=== PATIENT | female | born 1970 | race Caucasian/White ===

== ENCOUNTER 2019-07-18 11:21 | Outpatient (CLI) | payer BC, SELFPAY ==
--- NOTE | ~2019-07-18 | XR_ITS ---
EXAMINATION: XR chest 2V 07/18/2019 11:39 INDICATION: Cough. PROCEDURE: 2 view chest COMPARISON: Comparison to multiple prior studies sequentially, with oldest reviewed study dated 04/13. FINDINGS: The lungs are clear. The cardiomediastinal silhouette is within normal limits. There are no pleural effusions. There is no pneumothorax suspected. IMPRESSION: 1: NO ACUTE CARDIOPULMONARY DISEASE. Reviewed, dictated and finalized at location B. 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
== END 2019-07-18 11:22 | disposition home or self-care (01) ==
LOC: ANHIMG 11:28
PROVIDERS: PCP Internal Medicine; Visit Provider Physician Assistant
DX: R05 Cough (principal)
CPT/HCPCS: 71046

== ENCOUNTER 2019-07-30 17:14 | Emergency (ER) | payer BC, SELFPAY ==
--- NOTE | ~2019-07-30 | XR_ITS ---
EXAMINATION: XR chest 2V DATE: 07/30/2019 19:32 INDICATION: Cough and fever TECHNIQUE: AP and lateral views of the chest are obtained. COMPARISON: 07/18/2019 FINDINGS: The lungs are free of acute opacities. There is no pleural effusion or pneumothorax. The ca rdiomediastinal silhouette is normal. There is moderate thoracic spondylosis. There is partially imag ed anterior fusion hardware lower cervical spine. IMPRESSION: 1. No acute cardiopulmonary abnormality. Reviewed, dictated and finalized at location A.
--- NOTE | ~2019-07-30 | CT_ITS ---
EXAMINATION: CTA chest PE protocol DATE: 07/30/2019 20:26 INDICATION: Chest pain, shortness of breath and cough TECHNIQUE: Computed tomography angiography (CTA) of the chest was performed with 100 mL Omnipaque-350 intravenous contrast timed to evaluate the pulmonary arteries. Coronal maximum intensity projection 3D-reconstructions were created by the technologist. The dose-length product (DLP) was 1050.65 mGy-cm . Automated exposure control and iterative reconstruction technique were employed. COMPARISON: None. FINDINGS: The pulmonary arteries are well-opacified. No pulmonary embolism is identified. The lungs a re free of acute opacities. There is no pleural effusion or pneumothorax. The heart size is normal. T here is an increase in number of nonpathologically enlarged mediastinal lymph nodes. There is mild th oracic spondylosis. There are partially imaged changes of anterior fusion procedure in the lower cerv ical spine. IMPRESSION: 1. No pulmonary embolism or acute cardiopulmonary abnormality. Reviewed, dictated and finalized at location A.
[2019-07-30 17:48] VITALS: BP 145/125; PULSE 83; PULSE 87; RESP 18; TEMP 36.8; O2SAT 97
--- NOTE | 2019-07-30 18:01 | ED.URI ---
HPI - URI/Sore Throat General Chief Complaint: Shortness of Breath/Dyspnea Stated Complaint: short of breath, cough, fever Time Seen by Provider: 07/30/19 17:33 Source: patient and RN notes reviewed Mode of arrival: ambulatory Limitations: no limitations History of Present Illness HPI Narrative: Pt is a 48 y/o female who presents to the ED with c/o flu-like symptoms starting roughly 2 weeks ago. 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 She states she just talked to mother briefly but it was over 4 weeks ago . Pt notes that she developed a fever and cough roughly 2 weeks ago. She states that she was evaluated by her PCP, Dr. Francois, on 07/15 for her symptoms, but notes that she didn't receive a flu swab or other testing. Pt states that she was discharged home with Deysi Billy. She states that her temperature has been persistently elevated ever since, and notes that her temperature was 100.4 degrees last night. Pt states that she has had SOB, a productive cough, bilateral chest pain, sore throat, and a headache for the past week. She notes that she has been producing a mix of phlegm and blood with her cough. Pt denies having any epistaxis, sinus congestion, or post-nasal drip. She states that she hasn't had any recent travel. elicited complaint: other (Flu-like symptoms) Onset (ago): week(s) (2) Description of mucous: bloody Associated symptoms: fever, headache, sore throat, cough (productive), chest pain (bilateral chest pain) and shortness of breath Related Data Allergies Allergy/AdvReac Type Severity Reaction Status Date / Time clindamycin Allergy Mild Hives Verified 07/16/19 16:36 morphine Allergy Mild Headache Verified 07/16/19 16:36 Review of Systems Review of Systems: All systems reviewed & are unremarkable except as noted in HPI and below Constitutional: Constitutional: Reports fever(s) and Reports headache(s) ENT: Denies epistaxis, Denies nasal congestion, Denies post nasal drip and Reports sore throat Cardiovascular: Cardiovascular: Reports chest pain (bilateral) Respiratory: Respiratory: Reports cough (productive) and Reports dyspnea PMFSH Past Medical History Medical History Anxiety Depression Endometriosis GERD (gastroesophageal reflux disease) Gestational diabetes Surgical History Surgical History History of hysterectomy Hx of appendectomy Hx of cervical spine surgery Hx of section Hx of left knee surgery Hx of shoulder surgery bilateral shoulders Social History Social History Smoking status: Former smoker Second hand tobacco smoke exposure: No Alcohol intake: never Gender identity (if verbalized by the patient): Female Exam Narrative: Exam Narrative: GENERAL: Well-appearing, well-nourished, and in no acute distress. HEAD: Normocephalic, atraumatic EYES: PERRLA and EOMI, conjunctiva clear without discharge EARS: TM's clear bilaterally without erythema or dullness THROAT:Mucous membranes moist, Oropharynx normal without erythema, exudate, peritonsillar swelling or fluctuance NECK: Supple, without lymphadenopathy or mass RESPIRATORY: No respiratory distress, Airway patent, Respirations non-labored, Clear to auscultation without rales, rhonchi or wheeze HEART: Regular rate and rhythm. No murmur heard. Normal peripheral pulses. ABDOMEN: Soft, nontender, nondistended, normal active bowel sounds. No masses. No rebound or guarding, No organomegaly. EXTREMITIES: No edema, normal strength with full range of motion. SKIN: Warm, dry, normal color without rash NEURO: Alert and oriented x3. CN 2-12 grossly intact. No focal deficits. PSYCH: Normal mood and affect. Course Course Emergency Course: Patient presented with c/o URI symptoms with laryngitis for 2 week
--- NOTE | 2019-07-30 18:08 | ECG_ITS ---
Measurements Intervals [place] Rate: 87 P: 59 [place]: 162 QRS: -51 QRSD: 110 T: 61 QT: 362 QTc: 436 Interpretive Statements SINUS RHYTHM LEFT ANTERIOR FASCICULAR BLOCK BASELINE WANDER- V2 ABNORMAL ECG Electronically Signed On 07-31-2019 7:36:30 CDT by Kale Osorio D.O.
[2019-07-30 18:20] LABS: Basophils Absolute Auto 0.1 K/mm3 (0.0-0.1); Basophils Percent Auto 0.7 % (0.2-1.2); Eosinophils Absolute Auto 0.4 K/mm3 (0-0.3); Hematocrit 39.7 % (37.0-47.0); Hemoglobin 12.8 g/dL (12.0-15.0); Immature Granulocyte Absolute 0.07 K/mm3 (0.00-0.031); Immature Granulocyte Percent A 0.5 % (0-0.5); Mean Corpuscular HGB Conc 32.2 g/dl (32-36); Mean Corpuscular Hemoglobin 28.6 pg (26-34); Mean Corpuscular Volume 88.8 fl (80-100); Mean Platelet Volume 9.5 fl (7.4-10.4); Monocytes Absolute Auto 1.4 K/mm3 (0.1-0.6); Monocytes Percent Auto 10.1 % (2.6-8.5); Neutrophils Absolute Auto 8.4 K/mm3 (1.3-6.7); Neutrophils Percent Auto 62.7 % (45.5-73.1); Platelet Count Result 229 k/mm3 (150-375); Red Blood Count 4.47 M/mm3 (4.2-5.4); Red Cell Distribution Width 12.9 % (11.5-14.5); White Blood Count 13.5 K/mm3 (4.5-10.0)
--- NOTE | 2019-07-30 18:25 | PCRCNOTE ---
pt refused ABG at this time. is aware
[2019-07-30 18:29] LABS: Prothrombin Time 12.8 Seconds (11.1-14.7)
[2019-07-30 18:30] LABS: Partial Thromboplastin Time 28.2 SECONDS (22.3-36.8)
[2019-07-30 18:31] LABS: Lactic Acid Reflex 1.7 mmol/L (0.7-2.1)
[2019-07-30 18:32] LABS: Alanine Aminotransferase 20 U/L (4-35); Albumin Level 4.5 g/dL (3.5-5.1); Alkaline Phosphatase 96 U/L (38-126); Aspartate Amino Transferase 27 U/L (14-36); Bilirubin,Total 0.3 mg/dL (0.2-1.3); Blood Urea Nitrogen 15 mg/dL (7-17); Calcium 9.3 mg/dL (8.4-10.2); Carbon Dioxide 27 mmol/L (22-30); Chloride 101 mmol/L (98-107); Estimated CRCL calculation 115 ml/min; Estimated Glomerular Filt Rate > 60; Glucose 109 mg/dL (65-105); Potassium 4.3 mmol/L (3.4-5.0); Sodium 135 mmol/L (137-145)
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
[2019-07-30 19:36] VITALS: TEMP 36.6
[2019-07-30 20:11] VITALS: BP 109/65; PULSE 81; RESP 18; O2SAT 97
[2019-07-30 21:21] VITALS: TEMP 36.8
[2019-07-30 21:47] VITALS: BP 115/73; PULSE 72; RESP 15; O2SAT 100
== END 2019-07-30 21:58 | disposition home or self-care (01) ==
PROVIDERS: Emergency Provider General Practice
DX: J06.9 Acute upper respiratory infection, unspecified (principal); J40 Bronchitis, not specified as acute or chronic; F41.9 Anxiety disorder, unspecified; F32.9 Major depressive disorder, single episode, unspecified; K21.9 Gastro-esophageal reflux disease without esophagitis
CPT/HCPCS: 36415; 71046; 71275; 80053; 83605; 85025; 85610; 85730; 87081; 87804; 87880; 93005; 99284; Q9967

== ENCOUNTER → 2019-08-22 10:43 | Outpatient (CLI) | payer BC, SELFPAY ==
--- NOTE | ~2019-08-22 | MM_ITS ---
EXAMINATION: MM screening ernst BI w corey HISTORY: Screening mammogram TECHNIQUE: Craniocaudal and mediolateral oblique 3-D tomosynthesis images were obtained and synthetic 2-D images were generated. CAD analysis was submitted and interpreted. COMPARISON: 03/21/2018, 09/30/2014 bilateral digital mammogram examinations BREAST PARENCHYMAL COMPOSITION: There are scattered areas of fibroglandular density. FINDINGS: There is no evidence of suspicious mass, calcification, or architectural distortion to sugg est malignancy in either breast. There has been no suspicious interval change. IMPRESSION: 1. No mammographic evidence of malignancy. 2. Recommend routine screening mammography in one year. BI-RADS Category 1: Negative Reviewed, dictated and finalized at location A.
== END ==
PROVIDERS: PCP Internal Medicine; Visit Provider Obstetrics & Gynecology
DX: Z12.31 Encounter for screening mammogram for malignant neoplasm of breast (principal)
CPT/HCPCS: 77063; 77067

== ENCOUNTER → 2020-04-07 10:01 | Outpatient (CLI) | payer OTHER, SELFPAY ==
--- NOTE | ~2020-04-07 | XR_ITS ---
[[id number] ] INDICATION: Right rib pain TECHNIQUE: Frontal projection of the upper right ribs, frontal projection of the lower right ribs, ob lique projection of all the right ribs, frontal inspiratory chest x-ray for interpretation. FINDINGS: There are no displaced rib fractures identified. There are no soft tissue abnormality see n. The lungs are clear. IMPRESSION: 1:No displaced rib fractures. Reviewed, dictated and finalized at location A. RVISOR SIGN SHOP
== END ==
PROVIDERS: PCP Internal Medicine; Visit Provider Internal Medicine
DX: R07.81 Pleurodynia (principal)
CPT/HCPCS: 71101

== ENCOUNTER 2020-04-09 06:53 | Outpatient (NON) | payer OTHER, SELFPAY ==
[2020-04-10 01:48] LABS: SARS-CoV-2 RNA PCR Negative
== END 2020-04-09 06:54 ==
LOC: ANHCOVIDDT 06:57
PROVIDERS: PCP Internal Medicine; Visit Provider Internal Medicine
DX: Z20.828 Contact with and (suspected) exposure to other viral communicable diseases (principal); R43.2 Parageusia
CPT/HCPCS: 87635; C9803; U0003

== ENCOUNTER 2020-04-13 14:41 | Emergency (ER) | payer OTHER, SELFPAY ==
[2020-04-13 15:18] VITALS: BP 184/89; PULSE 101; RESP 16; TEMP 36.5; O2SAT 97
[2020-04-13 15:40] LABS: Basophils Absolute Auto 0.1 K/mm3 (0.0-0.1); Basophils Percent Auto 0.6 % (0.2-1.2); Eosinophils Absolute Auto 0.3 K/mm3 (0-0.3); Eosinophils Percent Auto 2.4 % (0-4.4); Hematocrit 41.9 % (37.0-47.0); Hemoglobin 13.7 g/dL (12.0-15.0); Immature Granulocyte Absolute 0.07 K/mm3 (0.00-0.031); Immature Granulocyte Percent A 0.6 % (0-0.5); Lymphocytes Absolute Auto 2.73 K/mm3 (0.9-3.2); Lymphocytes Percent Auto 23.4 % (18.3-44.2); Mean Corpuscular HGB Conc 32.7 g/dl (32-36); Mean Corpuscular Hemoglobin 28.8 pg (26-34); Mean Platelet Volume 9.2 fl (7.4-10.4); Monocytes Absolute Auto 1.4 K/mm3 (0.1-0.6); Monocytes Percent Auto 12.3 % (2.6-8.5); Neutrophils Absolute Auto 7.1 K/mm3 (1.3-6.7); Neutrophils Percent Auto 60.7 % (45.5-73.1); Platelet Count Result 221 k/mm3 (150-375); Red Blood Count 4.76 M/mm3 (4.2-5.4); Red Cell Distribution Width 12.6 % (11.5-14.5); White Blood Count 11.7 K/mm3 (4.5-10.0)
[2020-04-13 15:48] LABS: Alanine Aminotransferase 23 U/L (4-35); Albumin Level 4.3 g/dL (3.5-5.1); Alkaline Phosphatase 90 U/L (38-126); Anion Gap 7 mmol/L (8-16); Aspartate Amino Transferase 26 U/L (14-36); Bilirubin,Total 0.4 mg/dL (0.2-1.3); Blood Urea Nitrogen 13 mg/dL (7-17); Calcium 9.3 mg/dL (8.4-10.2); Carbon Dioxide 29 mmol/L (22-30); Chloride 100 mmol/L (98-107); Estimated CRCL calculation 114 ml/min; Estimated Glomerular Filt Rate > 60; Glucose 83 mg/dL (65-105); Potassium 4.1 mmol/L (3.4-5.0); Sodium 136 mmol/L (137-145)
[2020-04-13 16:05] LABS: Prothrombin Time 13.7 Seconds (11.1-14.7)
[2020-04-13 16:06] LABS: Partial Thromboplastin Time 28.3 SECONDS (22.3-36.8)
[2020-04-13 18:16] VITALS: BP 110/84; PULSE 96; RESP 18; O2SAT 95
[2020-04-13 18:26] LABS: Add Urine Microscopic? NO; Appearance Urine Clear (Clear); Bilirubin Urine Negative (Negative); Blood Urine Negative (Negative); Color Urine Yellow (Yellow); Glucose Urine UA Negative (Negative); Ketones Urine Negative (Negative); Leukocyte Esterase Ur Negative LEU/UL (Negative); Nitrate Urine Negative (Negative); Protein Urine Negative (Negative); Specific Grav Ur 1.016 (1.001-1.035); Urobilinogen Urine Negative mg/dL (<2.0)
[2020-04-13 18:37] VITALS: BP 126/80; PULSE 83
[2020-04-13 18:38] VITALS: BP 145/94; PULSE 92
[2020-04-13 18:39] VITALS: BP 161/111; PULSE 98
--- NOTE | 2020-04-13 18:48 | ED.GENADULT ---
HPI - General Adult General Chief complaint: GI Bleed Stated complaint: rectal bleeding Time Seen by Provider: 04/13/20 17:55 Source: patient History of Present Illness HPI narrative: Patient is a 49 y/o female complaining of heavy rectal bleeding while she was sitting on the commode earlier today. She states that she noticed a lot blood in the toilet bowel. There is no known alleviating or exacerbating factor. She denies any abdominal pain or rectal pain. Related Data Allergies Allergy/AdvReac Type Severity Reaction Status Date / Time clindamycin Allergy Mild Hives Verified 04/13/20 17:59 morphine Allergy Mild Headache Verified 04/13/20 17:59 Review of Systems Constitutional: Constitutional: Denies chills, Denies fever(s), Denies headache(s) and Denies weakness Eyes: Eyes: Denies blurry vision ENT: Denies headache(s) and Denies neck pain Cardiovascular: Cardiovascular: Denies chest pain and Denies dyspnea Respiratory: Respiratory: Denies cough and Denies dyspnea Gastrointestinal: Gastrointestinal: Denies abdominal pain, Denies diarrhea, Denies nausea, Denies vomiting and Reports other (possible rectal bleed) Genitourinary: Genitourinary: Denies hematuria and Denies dysuria Musculoskeletal: Musculoskeletal: Denies back pain and Denies neck pain Neurologic: Denies headache(s) and Denies weakness [facility] Past Medical History Medical History (Updated 04/13/20 @ 19:37 by Brandi Orlando MD) Anxiety Depression Endometriosis GERD (gastroesophageal reflux disease) Gestational diabetes Surgical History Surgical History History of hysterectomy Hx of appendectomy Hx of cervical spine surgery Hx of section Hx of left knee surgery Hx of shoulder surgery bilateral shoulders Family History Family History Sibling Hypertension Mother Patient's mother is Father Family history of diabetes mellitus in first degree relative Patient's father is in good health Social History Social History Smoking packs per day: 0.5 Smoking cigarettes per day: 10.0 Years smoked: 3 Smoking pack-years: 1.50 Smoking status: Former smoker Tobacco type: cigarettes Second hand tobacco smoke exposure: No Alcohol intake: never Substance use: never Gender identity (if verbalized by the patient): Female Exam Const: General: no acute distress and well developed Orientation/consciousness: oriented to person, oriented to place, oriented to time and patient oriented x3 HENMT: Head: normocephalic Ears: external ears normal General nose exam: Normal external nose present Eyes: General: appearance normal, both eyes and all related structures Conjunctivae: conjunctivae normal Neck: Neck: normal visual inspection and full ROM Chest: Chest palpation & inspection: normal inspection of the chest and no tenderness Resp: Effort & Inspection: normal respiratory effort Auscultation: clear to auscultation bilaterally Cardio: Rate: regular rate Rhythm: regular rhythm GI: GI Palp: No abdominal tenderness and Yes Soft to palpation Rectal Exam: visual inspection normal and other (gross blood noted) Skin: General skin exam: normal color and turgor normal Neuro: General: oriented to person, oriented to place, oriented to time and patient oriented x3 Cognition (Neuro): normal cognition Extrem: General: normal to inspection, full ROM and no pedal edema Psych: Appearance: grossly normal Mental Status: mental status grossly normal Affect: normal affect Course Consultations Consultation #1: Discussed with Dr. Grant, who agrees with plan for discharge and agrees to follow up with the patient in office. Date: 04/13/20 Time: 19:35 Vital Signs Vital signs: Vital Signs Temperature 36.5 C 04/13/20 15:18 Pulse Rate 101 H 04/13/20 15:18 R
--- NOTE | 2020-04-13 19:18 | PC.NURSE ---
Report to JIGNESH Soto, to continue care.
[2020-04-13 20:09] VITALS: BP 185/98; PULSE 88; RESP 16; TEMP 36.7; O2SAT 98
== END 2020-04-13 20:09 | disposition home or self-care (01) ==
PROVIDERS: Emergency Provider Emergency Medicine; PCP Internal Medicine
DX: K62.5 Hemorrhage of anus and rectum (principal); I10 Essential (primary) hypertension; N80.9 Endometriosis, unspecified; K21.9 Gastro-esophageal reflux disease without esophagitis; Z87.891 Personal history of nicotine dependence
CPT/HCPCS: 36415; 80053; 81003; 85025; 85610; 85730; 86850; 86900; 86901; 99284

== ENCOUNTER → 2022-11-07 13:59 | Outpatient (CLI) | payer OTHER, SELFPAY ==
--- NOTE | ~2022-11-07 | MR_ITS ---
MRI of the left wrist Technique: Coronal T1 weighted and proton density fat sat images, and axial and sagittal proton-densi ty and proton-density fat-sat images were acquired. Clinical History: Tendinitis Findings: Scapholunate ligament is intact, and there is no widening of the scapholunate interval. Gabriel otriquetral ligament is intact. Central articular disc of the TFCC appears to be intact. No definite TFCC perforation seen. There is focal cystic change at the radial aspect of the lunate bone. Bone marrow signals otherwise a re unremarkable. No fracture or dislocation evident. Flexor tendons in the carpal tunnel are unremarkable. Median nerve is unremarkable. Extensor tendons are unremarkable. Possible tiny ganglion cyst along the volar aspect of the distal radius. IMPRESSION: Possible tiny ganglion cyst along the volar aspect of the distal radius. No other significant abnormalities are identified. Reviewed, dictated and finalized at [facility].
== END ==
PROVIDERS: PCP Internal Medicine
DX: M77.8 Other enthesopathies, not elsewhere classified (principal)
CPT/HCPCS: 73221

== ENCOUNTER 2023-09-20 14:23 | Outpatient (CLI) | payer OTHER, SELFPAY ==
--- NOTE | ~2023-09-20 | MM_ITS ---
EXAMINATION: MM screening ernst BI w corey HISTORY: Screening mammogram TECHNIQUE: Craniocaudal and mediolateral oblique 3-D tomosynthesis images were obtained and synthetic 2-D images were generated. CAD analysis was submitted and interpreted. COMPARISON: August 22, 2019 bilateral screening mammogram BREAST PARENCHYMAL COMPOSITION: There are scattered areas of fibroglandular density. FINDINGS: There is no evidence of suspicious mass, calcification, or architectural distortion to sugg est malignancy in either breast. There has been no suspicious interval change. IMPRESSION: 1. No mammographic evidence of malignancy. 2. Recommend routine screening mammography in one year. BI-RADS Category 1: Negative Reviewed, dictated and finalized at location B.
== END 2023-09-20 14:24 ==
LOC: MICIMG 14:24
PROVIDERS: PCP Physician Assistant; Visit Provider Obstetrics & Gynecology
DX: Z12.31 Encounter for screening mammogram for malignant neoplasm of breast (principal)
CPT/HCPCS: 77063; 77067

== ENCOUNTER 2023-09-28 10:54 | Emergency (ER) | payer OTHER, SELFPAY ==
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
[2023-09-28 11:17] VITALS: BP 135/95; PULSE 111; RESP 18; TEMP 36.8; O2SAT 100
--- NOTE | 2023-09-28 11:34 | ECG_ITS ---
SEE SCANNED COPY FOR CONFIRMED REPORT MTDD
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
[2023-09-28] MEDS: ACETAMINOPHEN 500 MG TABLET 1000 MG PO (12:07)
[2023-09-28] MEDS: CYCLOBENZAPRINE HCL 10 MG TABLET PO (12:07)
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
[2023-09-28 12:27] LABS: Basophils Absolute Auto 0.1 K/mm3 (0.0-0.1); Basophils Percent Auto 0.6 % (0.2-1.2); Eosinophils Absolute Auto 0.2 K/mm3 (0-0.3); Eosinophils Percent Auto 1.9 % (0-4.4); Hematocrit 41.2 % (37.0-47.0); Hemoglobin 13.2 g/dL (12.0-15.0); Immature Granulocyte Absolute 0.05 K/mm3 (0.00-0.031); Immature Granulocyte Percent A 0.5 % (0-0.5); Lymphocytes Percent Auto 17.1 % (18.3-44.2); Mean Corpuscular Hemoglobin 28.2 pg (26-34); Mean Platelet Volume 9.3 fl (7.4-10.4); Monocytes Percent Auto 10.8 % (2.6-8.5); Neutrophils Absolute Auto 6.5 K/mm3 (1.3-6.7); Neutrophils Percent Auto 69.1 % (45.5-73.1); Platelet Count Result 260 k/mm3 (150-375); Red Blood Count 4.68 M/mm3 (4.2-5.4); Red Cell Distribution Width 13.5 % (11.5-14.5); White Blood Count 9.4 K/mm3 (4.5-10.0)
[2023-09-28 12:39] LABS: Alanine Aminotransferase 27 U/L (6-35); Albumin Level 4.6 g/dL (3.5-5.1); Alkaline Phosphatase 102 U/L (38-126); Anion Gap 7 mmol/L (4-12); Aspartate Amino Transferase 26 U/L (14-36); Bilirubin,Total 0.5 mg/dL (0.2-1.3); Blood Urea Nitrogen 14 mg/dL (7-17); Calcium 9.2 mg/dL (8.4-10.2); Carbon Dioxide 28 mmol/L (22-30); Chloride 104 mmol/L (98-107); Estimated CRCL calculation 106 ml/min; Estimated Glomerular Filt Rate > 60; Glucose 117 mg/dL (65-110); Lipase 48 U/L (23-300); Potassium 4.7 mmol/L (3.4-5.0); Sodium 139 mmol/L (137-145)
[2023-09-28 12:45] LABS: Partial Thromboplastin Time 30.8 Seconds (22.3-36.8)
--- NOTE | 2023-09-28 13:58 | PC.NURSE ---
Pt tolerated CT scans. Cervical collar intact.
[2023-09-28 14:02] VITALS: BP 130/67; PULSE 89; RESP 18; TEMP 36.8; O2SAT 100
[2023-09-28 14:51] VITALS: BP 130/72; PULSE 88; RESP 18; TEMP 36.8; O2SAT 100
== END 2023-09-28 14:54 | disposition home or self-care (01) ==
PROVIDERS: Emergency Provider Physician Assistant; PCP Physician Assistant
DX: S00.33XA Contusion of nose, initial encounter (principal); S20.212A Contusion of left front wall of thorax, initial encounter; S16.1XXA Strain of muscle, fascia and tendon at neck level, initial encounter; S63.502A Unspecified sprain of left wrist, initial encounter; E11.9 Type 2 diabetes mellitus without complications; E78.5 Hyperlipidemia, unspecified; E66.01 Morbid (severe) obesity due to excess calories; Z68.42 Body mass index [BMI] 45.0-49.9, adult; J45.909 Unspecified asthma, uncomplicated; K21.9 Gastro-esophageal reflux disease without esophagitis; G47.33 Obstructive sleep apnea (adult) (pediatric); N80.9 Endometriosis, unspecified; Z87.891 Personal history of nicotine dependence; Z96.651 Presence of right artificial knee joint; Z90.710 Acquired absence of both cervix and uterus; Z79.84 Long term (current) use of oral hypoglycemic drugs; I44.4 Left anterior fascicular block; V49.40XA Driver injured in collision with unspecified motor vehicles in traffic accident, initial encounter
CPT/HCPCS: 36415; 70450; 70486; 71260; 72125; 73030; 73110; 73130; 80053; 83690; 85025; 85610; 85730; 93005; 99284; A9270; Q9967

== ENCOUNTER 2024-01-01 12:02 | Outpatient (CLI) | payer OTHER, SELFPAY ==
--- NOTE | ~2024-01-01 | MR_ITS ---
EXAMINATION: MR cervical spine wo con DATE: 01/01/2024 12:56 INDICATION: Cervical radiculopathy. TECHNIQUE: Magnetic resonance imaging (MRI) of the cervical spine was performed without intravenous c ontrast. Sequences included sagittal T2-weighted FSE, sagittal T2-weighted FS FSE, sagittal T1-weight ed FSE, axial MERGE and axial T2-weighted FSE. COMPARISON: CT dated 09/28/2023 FINDINGS: Straightening of the normal cervical lordosis. Metallic magnetic field artifact associated with the a nterior plate-screw fixation for a C4-C6 anterior spinal fusion. Unfused vertebral body heights are n ormal. Bone marrow signal intensity is normal. Moderate disc height loss at C6-C7 and mild disc heig ht loss at C2-C3 and C3-C4. Cord signal intensity is normal. The following disc levels are specifical ly discussed: C2-C3: The disc does not extend beyond the endplate margin. There is mild bilateral uncovertebral you nt osteoarthritis. There is mild right and severe left facet joint osteoarthritis. There is mild righ t and moderate left neural foraminal stenosis. There is no central canal stenosis. C3-C4: Disc is bulging with annular fissure. There is mild bilateral uncovertebral joint osteoarthrit is. There is mild right and moderate left facet joint osteoarthritis. There is mild right and moderat e left neural foraminal stenosis. There is mild central canal stenosis with flattening of the ventral surface of the cord.. C4-C5: The disc space is fused. There is mild bilateral facet joint osteoarthritis. There is mild lef t neural foraminal stenosis. There is no central canal stenosis. C5-C6: The disc space is fused. There is mild bilateral facet joint osteoarthritis. There is mild bi lateral neural foraminal stenosis. There is mild central canal stenosis. C6-C7: Disc is bulging, eccentric to the right There is moderate left and severe right uncovertebral joint osteoarthritis. There is moderate bilateral facet joint osteoarthritis. There is mild left and moderate right neural foraminal stenosis. There is mild central canal stenosis with indentation of th e right ventral surface of the cord. C7-T1: The disc does not extend beyond the endplate margin. There is mild bilateral uncovertebral you nt osteoarthritis. There is moderate bilateral facet joint osteoarthritis. There is mild bilateral ne ural foraminal stenosis. There is no central canal stenosis. IMPRESSION: 1. Mild cervical spondylosis with instrumented C4-C6 anterior spinal fusion. Reviewed, dictated and finalized at location A.
== END 2024-01-01 12:03 | disposition home or self-care (01) ==
PROVIDERS: PCP Internal Medicine; Visit Provider Internal Medicine
DX: S14.109A Unspecified injury at unspecified level of cervical spinal cord, initial encounter (principal); X58.XXXA Exposure to other specified factors, initial encounter; V89.2XXA Person injured in unspecified motor-vehicle accident, traffic, initial encounter; M47.22 Other spondylosis with radiculopathy, cervical region
CPT/HCPCS: 72141

== ENCOUNTER 2024-01-17 15:30 | Outpatient (RCR) | payer OTHER, SELFPAY ==
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
--- NOTE | 2024-01-17 16:07 | PTOPDC ---
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 Reported Pain Level Pain Score Self Report Additional Pain Score Comments L side of neck hurts; feel like electrical stim running L side neck > cheek, L shoulder and arm into above elbow, L trunk and L leg lateral to little toe; pain range in the past week: 3-9/10 increase pain with turning head to R and L, bend neck down decrease pain: hot shower, taking tramadol, flexeril-help little; use airplane pillow around neck; awaken from sleeping 3x/night due to neck pain Assessment PT Clinical Summary Susan has received 10 PT sessions. Compared to the initial evaluation: pain rating is the same at 3-9/10, with radicular pain into L shoulder and UE to fingers; also reports pain into L cheek, L side trunk and L to toes; self assessment Neck Disability Index rating from 32 to 48% limitation in activity level; reports her sleep is disrupted 3x/night due to neck pain; cervical active ROM is about the same, with pain increase with flexion, rotation R and L and lateral bend to R and L; L shoulder flexion increases pain in L side of neck; education for HEP and posture/body mechanics. The goals were partially met. Discharge PT services. She is to continue with her HEP. And has a neurosurgeon consult scheduled in few weeks. Plan of Care PT Services Indicated No
== END 2024-02-19 14:58 | disposition home or self-care (01) ==
LOC: ANHPT 15:30
PROVIDERS: PCP Physician Assistant; Visit Provider Psychiatry & Neurology Neurology
DX: G47.12 Idiopathic hypersomnia without long sleep time (principal); M54.12 Radiculopathy, cervical region; S14.109A Unspecified injury at unspecified level of cervical spinal cord, initial encounter; V89.2XXA Person injured in unspecified motor-vehicle accident, traffic, initial encounter
CPT/HCPCS: 97014; 97110; 97140; 97161; 97530; G0283

== ENCOUNTER 2024-04-01 15:08 | Outpatient (CLI) | payer OTHER, SELFPAY ==
--- NOTE | 2024-04-01 15:24 | ECG_ITS ---
Test Date: 2024-04-01 15:35:31 Measurements Intervals [place] Rate: 85 P: 69 NC: 159 QRS: -52 QRSD: 110 T: 69 QT: 355 QTc: 423 Interpretive Statements SINUS RHYTHM CANNOT R/O SEPTAL INFARCT, AGE INDETERMINATE LEFT ANTERIOR FASCICULAR BLOCK BASELINE ARTIFACT- II, III, AVR, AVL ,AVF ABNORMAL ECG No previous ECG available for comparison Electronically Signed On 04-01-2024 15:47:58 [employer] by Kale Osorio D.O.
== END 2024-04-01 15:09 | disposition home or self-care (01) ==
PROVIDERS: PCP Internal Medicine
DX: M48.02 Spinal stenosis, cervical region (principal); M54.12 Radiculopathy, cervical region; Z01.818 Encounter for other preprocedural examination; I44.4 Left anterior fascicular block
CPT/HCPCS: 93005

== ENCOUNTER 2025-02-06 17:05 | Emergency (ER) | payer OTHER, SELFPAY ==
[2025-02-06 17:19] VITALS: BP 119/58; PULSE 80; RESP 16; TEMP 36.8; O2SAT 97
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
== END 2025-02-06 18:20 | disposition home or self-care (01) ==
PROVIDERS: Emergency Provider Nurse Practitioner; PCP Internal Medicine
DX: H60.313 Diffuse otitis externa, bilateral (principal); Z87.891 Personal history of nicotine dependence
CPT/HCPCS: 99213; G0463